=== PATIENT | male | born 1950 | race Caucasian/White ===

== ENCOUNTER → 2021-02-20 11:00 | Outpatient (CLI) | payer MEDICARE, SELFPAY | PROVIDERS: Visit Provider Internal Medicine Gastroenterology | DX: Z01.812 Encounter for preprocedural laboratory examination (principal); Z20.822 Contact with and (suspected) exposure to COVID-19; Z12.11 Encounter for screening for malignant neoplasm of colon | CPT/HCPCS: U0003 ==

== ENCOUNTER 2021-02-22 10:58 | Day surgery (SDC) | payer MEDICARE, SELFPAY ==
[2021-02-18 12:59] VITALS: BMI 28.2
[2021-02-22 11:28] VITALS: BP 134/89; PULSE 88; RESP 16; TEMP 36.7; O2SAT 99
--- NOTE | 2021-02-22 11:40 | P.PN_ITS ---
[facility] Anesthesia Checklist - Patient Identification Patient Identification: Arm Band - Structural Data Admitted From: Home Planned Operative Procedure/s: Colonoscopy Consent for Planned Operative Procedure(s) Verified: Yes - NPO Status Verified Time NPO: 00:00 - Airway Assessment C-Spine Mobility Assessed: Yes TMJ Mobility Assessed: Yes Dentition: Poor Dentition - Neurological Assessment Level of Consciousness: Awake Hx Seizures: No Numbness or tingling in extremities: No - Anesthesia Plan Anesthesia Risk discussed: Yes Anesthesia Plan: Verified ASA Class: II Anesthesia Type: MAC [facility] History I have reviewed the patient's past medical history: Yes Medical History: Denies:: Cancer, Diabetes Mellitus Type 1, Diabetes Mellitus Type 2, Internal Pacemaker, MRSA, Seizures *Have you ever received a pneumonia vaccine?: Yes *Have you received a flu vaccine this season?: No Anesthesia experience/problems:: None Laterality Cases: Bilateral: Tonsillectomy Other Surgeries: No: Pacemaker Amputation: No Fractures: No - *Social History Last grade of school completed: Advanced degree Smoking Status: Never smoker Alcohol Intake: current Alcohol Intake Frequency:: 0-2 drinks per day Substance Use Type: denies use *Occupational Status:: retired Housing: house Household Members: spouse *Travel in the last 8 weeks: None Family Hx:: Unable to obtain
[2021-02-22 11:58] VITALS: O2SAT 99
--- NOTE | 2021-02-22 12:26 | P.PCN_ITS ---
[facility] Procedure Note Procedure Note:: Colonoscopy Procedure Report: Colonoscopy with cold snare polypectomy Endoscopist: Jameson Wright II, MD Referring physician: Rakesh Royal MD Date of Procedure: February 22, 2021 Equipment: Olympus 190 variable stiffness pediatric colonoscope Sedation: MAC sedation Indication: Mr. Ray is a 71-year-old gentleman who is here for diagnostic colonoscopy secondary to a positive Cologuard. The patient does state that he was started on methotrexate for his arthritis. He developed uncontrollable diarrhea and quit taking the methotrexate on December 20, 2020. His bowel function has returned towards normal. He has lost 18 pounds. He reports no rectal bleeding, abdominal pain or family history of colon cancer. This is his first colonoscopy. Procedure: Prior to the procedure, a history and physical exam was performed, and patient's medications and allergies were reviewed. The risks, benefits and alternatives of the sedation and procedure were discussed with the patient. All questions were answered and informed consent was obtained. The patient was brought to the procedure room. Patient identification and proposed procedure were verified by the physician and the nurse. The patient was placed in a left lateral decubitus position and the scope was passed under direct vision. Throughout the procedure, the patient's blood pressure, pulse, and oxygen saturations were monitored continuously. The colonoscopy was accomplished without difficulty. The patient tolerated the procedure well. Findings: On digital rectal examination there was normal rectal tone. There were no external hemorrhoids. The colonoscope was introduced through the anal canal to the rectum and advanced to the cecum. The ileocecal valve and appendiceal orifice were identified. The scope was advanced a short distance into the ileum which appeared grossly normal. The scope was then withdrawn into the colon. The cecum and ascending colon were grossly normal. There were 3 polyps in the transverse (3, 4 and 4 mm) and one polyp in the sigmoid (4 mm) that were removed via cold snare polypectomy. There were extensive scattered diverticuli throughout the descending and sigmoid colon (LEFT colon). The rectum itself was normal. Upon retroflexion within the rectum there were grade 2 internal hemorrhoids. The preparation was excellent throughout with [place] Preparation Score of 9. The cecal time was 12 minutes. Impression: 1. Diminutive colonic polyps x4 2. Extensive left-sided diverticulosis 3. Grade 2 internal hemorrhoids Plan: I will follow up the polyp histology. I do not think that he will require any further preventive/surveillance colonoscopy.. I would encourage bulking fiber supplementation on a long-term daily maintenance basis.
[2021-02-22 12:30] VITALS: BP 77/57; PULSE 98; RESP 18; TEMP 36.1; O2SAT 89
[2021-02-22 12:40] VITALS: BP 109/67; PULSE 86; RESP 18; O2SAT 93
[2021-02-22 12:49] VITALS: BP 110/71; PULSE 82; RESP 18; O2SAT 94
[2021-02-22 12:55] VITALS: BP 113/76; PULSE 80; RESP 18; O2SAT 96
== END 2021-02-22 13:06 | disposition home or self-care (01) ==
LOC: OUTP 11:03
PROVIDERS: PCP Family Medicine; Visit Provider Internal Medicine Gastroenterology
PROC: 0DJD8ZZ Inspection of Lower Intestinal Tract, Via Natural or Artificial Opening Endoscopic (ICD-10-PCS; CPT 45378; principal; 2021-02-22 12:00)
DX: K63.5 Polyp of colon (principal); K57.30 Diverticulosis of large intestine without perforation or abscess without bleeding; K64.1 Second degree hemorrhoids; E11.9 Type 2 diabetes mellitus without complications; M19.90 Unspecified osteoarthritis, unspecified site; Z79.899 Other long term (current) drug therapy; I10 Essential (primary) hypertension; E03.9 Hypothyroidism, unspecified; Z86.73 Personal history of transient ischemic attack (TIA), and cerebral infarction without residual deficits; Z88.0 Allergy status to penicillin; Z79.82 Long term (current) use of aspirin; M10.9 Gout, unspecified
CPT/HCPCS: 45385; 88305; J2704